=== PATIENT | male | born 1990 | race American Indian/Alaskan Native ===

== ENCOUNTER 2017-03-15 02:52 | Emergency (ER) | payer OTHER ==
[2017-03-15 03:10] VITALS: BP 110/73; PULSE 90; RESP 18; TEMP 98.5; O2SAT 100
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
== END 2017-03-15 04:01 | disposition home or self-care (01) ==
LOC: H.ER 02:52
DX: S00.81XA Abrasion of other part of head, initial encounter (principal); Y04.2XXA Assault by strike against or bumped into by another person, initial encounter